=== PATIENT | female | born 1970 | race Caucasian/White ===

== ENCOUNTER 2016-07-10 09:31 | Emergency (ER) | payer OTHER ==
[~2016-07-10] VITALS: Ht 160 cm; Wt 81.6 kg
[~2016-07-10 09:31] MED LIST: AMOXICILLI250 MG/51 PO; AMOXICILLIN500 M3 PO; PERCOCET 5-3251 EACH PO
[2016-07-10 09:34] VITALS: BP 180/88
--- NOTE | 2016-07-10 09:41 | ED THROAT/DENTAL COMPLAINT ---
History of Present Illness General Chief Complaint: Sore Throat, Dental Pain Stated Complaint: FEVER,SORE THROAT Source: patient Exam Limitations: no limitations Vital Signs & Intake/Output Vital Signs & Intake/Output ED Intake and Output 07/11 0000 07/10 1200 Intake Total 0 Output Total Balance 0 Intake, Oral 0 Patient 180 lb Weight Allergies Coded Allergies: No Known Allergies (01/16/16) Reconcile Medications Amoxicillin 500 MG TABLET 1 TAB PO TID dental infection Amoxicillin 500 MG TABLET 2 TAB PO BID STREP Amoxicillin 250 MG/5 ML SUSP.RECON 10 ML PO TID TONSILITIS [MAGIC MOUTH WASH] 10 ML LIQUID 10 ML PO TID STREP VISCOUS LIDOCAINE, MALLOX, BENADRYL Oxycodone HCl/Acetaminophen (Percocet 5-325 MG Tablet) 1 EACH TABLET 1-2 TAB PO Q6P PRN pain Oxycodone HCl/Acetaminophen (Percocet 5-325 MG Tablet) 5 MG-325 MG TABLET 1-2 TAB PO Q6P PRN PAIN Triage Note: 45 YEAR OLD FEMALE COMPLAINS OF SORE THROAT X 3 DAYS. TEMP 101.1 AT TRIAGE, ABLE TO SWALLOW BUT WITH PAIN Triage Nurses Notes Reviewed? yes Onset: Abrupt Duration: day(s):, constant, continues in ED Timing: recent history Severity: moderate, severe No Modifying Factors: none : No Patient currently breastfeeds: No HPI: 45-year-old female who comes into emergency room with complaints of sore throat is been going on for the past. Severe pain to the neck. Swollen glands. Difficulty swallowing. Fever body aches and chills. Denies any other associated symptoms. (SANTIAGO MANZANO) Past History Travel History Traveled to [place] past 21 day No Medical History Any Pertinent Medical History? 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 No (SANTIAGO MANZANO) Review of Systems Review of Systems Constitutional: Reports: see HPI. EENTM: Reports: see HPI. Respiratory: Reports: see HPI. Cardiovascular: Reports: no symptoms. GI: Reports: no symptoms. Genitourinary: Reports: no symptoms. Musculoskeletal: Reports: no symptoms. Skin: Reports: no symptoms. Neurological/Psychological: Reports: no symptoms. Hematologic/Endocrine: Reports: no symptoms. Immunologic/Allergic: Reports: no symptoms. All Other Systems: Reviewed and Negative (SANTIAGO MANZANO) Physical Exam Physical Exam General Appearance: well developed/nourished, moderate distress Head: atraumatic, normal appearance Eyes: Bilateral: normal appearance, EOMI. Nose: normal inspection Mouth/Throat: PHARYNGEAL ERYTHEMA, TONSILLAR SWELLING, PHARYNGEAL EDEMA Neck: lymphadenopathy (R), lymphadenopathy (L) Cardiovascular/Respiratory: no respiratory distress Back: normal inspection Neurologic/Psych: awake, alert, oriented x 3, normal gait, normal mood/affect Skin: intact, normal color Core Measures ACS in differential dx? No Severe Sepsis Present: No Septic Shock Present: No (SANTIAGO MANZANO) Progress Differential Diagnosis: aspirated tooth, carious tooth, epiglottitis, Ludwigs angina, meningitis, odontogenic abscess, yessica-tonsillar abscess, pharyngeal for. body, stomatitis/gingivitis, strep pharyngitis, tooth fracture Plan of Care: Orders Procedure Date/time Status THROAT CULTURE W/QUICK STREP 07/10 931 Complete Departure Departure Disposition: HOME OR SELF CARE Condition: Stable Clinical Impression Primary Impression: Strep pharyngitis Referrals: PATIENT HAS NO PRIMARY CARE DR (PCP/Family) Additional Instructions: Taking amoxicillin and Magic mouthwash as prescribed. Drink plenty of fluids. Rest. Motrin at home. Take Percocet as needed for pain. Return if any concerns worsening symptoms. Please go over all results of today's visit with your primary care doctor. Contact your primary care doctor to let them know you were here in the emergency room. There may be nonspecific findings which may not be related to your visit today here in the emergency room but may require further evaluation and chronic monitoring by your primary care doctor. If you had a laceration today the chance of foreign body always remains. You should follow-up with your primary care doctor for recheck in 3-5 days for a wound check. If you had an x-ray done there is a chance that a fracture could have been missed on initial read and you should follow-up with your primary care doctor for repeat x-rays if symptoms persist. If your blood pressure was elevated here in the emergency room please have rechecked by her primary care doctor within the next 48 hours by your primary care doctor. If you were prescribed a narcotic here in the emergency room or any type of controlled substances you're not allowed to drive while taking this medication or operate any type of heavy machinery. Narcotics can make you feel lightheaded dizziness nausea and can cause constipation. 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 Thank you for choosing [facility] emergency room. Please return to the emergency room immediately if you have any other concerns worsening of symptoms. Departure Forms: Customer Survey General Discharge Information Prescriptions: Current Visit Scripts Amoxicillin 2 TAB PO BID #40 TAB Oxycodone HCl/Acetaminophen (Percocet 5-325 MG Tablet) 1-2 TAB PO Q6P PRN PAIN #20 TAB [MAGIC MOUTH WASH] 10 ML PO TID Comments 07/10/2016 10:15:37 AM Patient has no evidence of peritonsillar abscess. Patient has no trismus. Patient has significant lymphadenopathy but has a positive strep test. I feel that this is just a very bad case of strep pharyngitis at this point. I Do not have any suspicion for abscess or Brett angina at this moment. Patient will be started on oral medication. Follow-up with primary care doctor in 2-3 days for recheck or return to the emergency room if any worsening symptoms for further evaluation. (MONAE STAFFORD,SANTIAGO) PA/GAS METER READER Co-Sign Statement Statement: ED Attending supervision documentation- [] I saw and evaluated the patient. I have also reviewed all the pertinent lab results and diagnostic results. I agree with the findings and the plan of care as documented in the PA's/GAS METER READER's documentation. [X] I have reviewed the ED Record and agree with the PA's/GAS METER READER's documentation. [] Additions or exceptions (if any) to the PAs/GAS METER READER's note and plan are summarized below: [] (BEHZAD CALVO,ASTRID)
[2016-07-10] MEDS ORDERED: PERCOCET 5-3251 EACH PO (10:07)
[2016-07-10] MEDS ORDERED: AMOXICILLIN500 M3 PO (10:07)
[2016-07-10] MEDS ORDERED: MAGIC MOUTH WASH PO (10:07)
== END 2016-07-10 10:19 ==
LOC: ERH 09:31
DX: J02.0 Streptococcal pharyngitis (principal); Z72.0 Tobacco use
CPT/HCPCS: 96372; J1885

== ENCOUNTER 2016-09-19 15:50 | Emergency (ER) | payer OTHER ==
[~2016-09-19] VITALS: Ht 160 cm; Wt 81.6 kg
[~2016-09-19 15:50] MED LIST changes: +MAGIC MOUTH WASH PO
[2016-09-19] MEDS ORDERED: ZOLPIDEM TARTRA10 M1 PO (16:54)
[2016-09-19] MEDS ORDERED: ZESTRIL10 M1 PO (16:54)
[2016-09-19] MEDS ORDERED: LEXAPRO20 M1 PO (16:54)
--- NOTE | 2016-09-19 17:04 | ED THROAT/DENTAL COMPLAINT ---
History of Present Illness General Chief Complaint: Sore Throat, Dental Pain Stated Complaint: DENTAL PAIN,?INFECTION Source: patient, family, old records Exam Limitations: no limitations Vital Signs & Intake/Output Vital Signs & Intake/Output Vital Signs Date Time Temp Pulse Resp B/P Pulse O2 O2 Flow FiO2 Ox Delivery Rate 09/19 1553 96.9 76 19 168/93 97 Room Air Allergies Coded Allergies: No Known Allergies (01/16/16) Reconcile Medications Escitalopram Oxalate (Lexapro) 20 MG TABLET 1 TAB PO DAILY MENTAL HEALTH ( Reported) Lisinopril (Zestril) (Unknown Strength) TABLET (Unknown Dose) PO DAILY BP ( Reported) Zolpidem Tartrate 10 MG TABLET 1 TAB PO QPM SLEEP (Reported) Triage Note: PT TO ED FOR DENTAL PAIN X 2 DAYS. HAS NOT SEEN A DENTIST OR CALLED DENTIST YET. Triage Nurses Notes Reviewed? yes : No Patient currently breastfeeds: No HPI: Certainly last a patient again at experience left lower tooth pain which is throbbing in nature. Worsen with cold and cold liquids. No radiation. Pain is constant. This morning the pain increased to 1010 and she noticed that her lower jaw was swollen. Patient does not have a dentist. Similar symptoms in the past and she's had dental abscesses. No difficulty breathing or swallowing. No fevers or chills. Past History Travel History Traveled to [place] past 21 day No Medical History Any Pertinent Medical History? 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 No Review of Systems Review of Systems Constitutional: Reports: no symptoms. EENTM: Reports: see HPI, tooth pain. Respiratory: Reports: no symptoms. Cardiovascular: Reports: no symptoms. GI: Reports: no symptoms. Musculoskeletal: Reports: no symptoms. Neurological/Psychological: Reports: no symptoms. Physical Exam Physical Exam General Appearance: well developed/nourished, alert, awake, moderate distress Head: atraumatic Eyes: Bilateral: PERRL, EOMI. Ears: Bilateral: canal normal, Tympanic normal. Mouth/Throat: dental tenderness Neck: normal inspection, supple Cardiovascular/Respiratory: normal breath sounds, normal peripheral pulses, regular rate/rhythm Neurologic/Psych: no motor/sensory deficits, awake, alert, oriented x 3, normal mood/affect Core Measures ACS in differential dx? No Severe Sepsis Present: No Septic Shock Present: No Progress Differential Diagnosis: odontogenic abscess Plan of Care: Current Medications Sig/Reynaldo Start time Last Medication Dose Stop Time Status Admin Amoxicillin 500 MG ONCE ONE 09/195 AC (Amoxil) 09/20 1715 Oxycodone/ 1 TAB ONCE ONE 09/19 1714 AC Acetaminophen 09/20 1715 (Percocet) Departure Departure Disposition: HOME OR SELF CARE Condition: Stable Clinical Impression Primary Impression: Dental abscess Referrals: PATIENT HAS NO PRIMARY CARE DR (PCP/Family) Additional Instructions: FOLLOW UP WITH THE DENTAL LIST PROVIDED TAKE AMOXIL DIRECTED TAKE PERCOCET NEEDED FOR PAIN RETURN IF SYMPTOMS WORSEN OR FOR ANY CONCERNS Departure Forms: Customer Survey General Discharge Information Prescriptions: Current Visit Scripts Amoxicillin 1 TAB PO TID #30 TAB Oxycodone HCl/Acetaminophen (Percocet 5-325 MG Tablet) 1-2 TAB PO Q6P PRN PAIN #20 TAB
[2016-09-19] MEDS ORDERED: AMOXICILLIN500 M3 PO (17:16)
[2016-09-19] MEDS ORDERED: PERCOCET 5-3251 EACH PO (17:16)
[2016-09-19 18:46] VITALS: BP 164/94
== END 2016-09-19 18:47 ==
LOC: ERH 15:50
DX: K04.7 Periapical abscess without sinus (principal)

== ENCOUNTER 2016-09-26 15:44 | Emergency (ER) | payer OTHER ==
[~2016-09-26] VITALS: Ht 160 cm; Wt 81.6 kg
[~2016-09-26 15:44] MED LIST changes: +LEXAPRO20 M1 PO; +ZESTRIL10 M1 PO; +ZOLPIDEM TARTRA10 M1 PO
[2016-09-26 16:09] VITALS: BP 128/80
--- NOTE | 2016-09-26 16:36 | RADIOLOGY REPORT ---
EXAMINATION: CHEST 2 VIEWS CLINICAL INFORMATION: Chest pain. COMPARISON: None. TECHNIQUE: PA and lateral views of the chest were obtained. FINDINGS: The cardiac silhouette is not enlarged. The mediastinal and hilar contours are unremarkable. There are neither pleural effusions nor pneumothoraces. There are no consolidations. The osseous structures are unremarkable. IMPRESSION: No evidence for acute disease.
[2016-09-26] MEDS ORDERED: DICLOFENAC SODI75 M2 PO (17:25)
[2016-09-26] MEDS ORDERED: TYLENOL WITH C1 EACH PO (17:25)
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
== END 2016-09-26 17:54 ==
LOC: ERH 15:44
DX: S20.211A Contusion of right front wall of thorax, initial encounter (principal); R07.89 Other chest pain; Y04.8XXA Assault by other bodily force, initial encounter; Y92.9 Unspecified place or not applicable; Y93.9 Activity, unspecified
CPT/HCPCS: 93005; 93010

== ENCOUNTER 2016-12-27 11:40 | Emergency (ER) | payer OTHER ==
[~2016-12-27] VITALS: Ht 160 cm; Wt 104.3 kg
[~2016-12-27 11:40] MED LIST changes: +DICLOFENAC SODI75 M2 PO; +TYLENOL WITH C1 EACH PO
[2016-12-27 11:44] VITALS: BP 150/84
[2016-12-27] MEDS ORDERED: BACTRIM DS TAB1 EACH PO (13:10)
[2016-12-27] MEDS ORDERED: AMOXICILLIN875 M1 PO (13:10)
--- NOTE | 2016-12-27 13:11 | ED HAND/WRIST INJURY COMPLAINT ---
History of Present Illness General Chief Complaint: Hand or Wrist Injury Stated Complaint: ?FINGER INFECTION Source: patient Exam Limitations: no limitations Vital Signs & Intake/Output Vital Signs & Intake/Output Vital Signs Date Time Temp Pulse Resp B/P B/P Pulse O2 O2 Flow FiO2 Mean Ox Delivery Rate 12/27 1144 98.5 85 20 150/84 97 Room Air Allergies Coded Allergies: No Known Allergies (01/16/16) Reconcile Medications Amoxicillin 875 MG TABLET 1 TAB PO BID paronychia Amoxicillin 500 MG TABLET 1 TAB PO TID DENTAL ABSCESS Diclofenac Sodium 75 MG TABLET.DR 1 TAB PO BID PRN pain/inflammation Escitalopram Oxalate (Lexapro) 20 MG TABLET 1 TAB PO DAILY MENTAL HEALTH ( Reported) Lisinopril (Zestril) (Unknown Strength) TABLET (Unknown Dose) PO DAILY BP ( Reported) Oxycodone HCl/Acetaminophen (Percocet 5-325 MG Tablet) 5 MG-325 MG TABLET 1-2 TAB PO Q6P PRN PAIN Sulfamethoxazole/Trimethoprim (Bactrim Ds Tablet) 800 MG-160 MG TABLET 1 TAB PO BID paronychia Tylenol With Codeine (Tylenol With Codeine #3 Tablet) 300 MG-30 MG TABLET 1-2 TAB PO Q6 PRN pain may cause drowsiness Zolpidem Tartrate 10 MG TABLET 1 TAB PO QPM SLEEP (Reported) Triage Note: C/O RIGHT THUMB PAIN. STATES SHE MAY HAVE SLICED THE TOP OF HER NAIL BUT SHE WAS IN [place] WHEN THE PAIN STARTED AND NOW IT APPEARS INFECTED. PT STATES [place] WAS [place]IM[place] WHEN IT BECAME PAINFUL Triage Nurses Notes Reviewed? yes Occurred: just prior to arrival Duration: day(s):, constant, getting worse Timing: recent history Injury Environment: home No Modifying Factors: none : No Patient currently breastfeeds: No HPI: 46-year-old female comes into emergency room with right thumb swelling and pain. Symptoms going on for a few days. Getting gradually worse. Denies any fever chills vomiting. Denies any assisted symptoms. (SANTIAGO MANZANO) Past History Travel History Traveled to [place] past 21 day No Medical History Any Pertinent Medical History? 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 No (SANTIAGO MANZANO) Review of Systems Review of Systems Constitutional: Reports: no symptoms. EENTM: Reports: no symptoms. Respiratory: Reports: no symptoms. Cardiovascular: Reports: no symptoms. GI: Reports: no symptoms. Genitourinary: Reports: no symptoms. Musculoskeletal: Reports: no symptoms. Skin: Reports: see HPI. Neurological/Psychological: Reports: no symptoms. Hematologic/Endocrine: Reports: no symptoms. Immunologic/Allergic: Reports: no symptoms. All Other Systems: Reviewed and Negative (SANTIAGO MANZANO) Physical Exam Physical Exam General Appearance: well developed/nourished, mild distress Head: atraumatic Eyes: Bilateral: normal appearance. Ears, Nose, Throat: normal ENT inspection, hearing grossly normal Neck: normal inspection Cardiovascular/Respiratory: no respiratory distress Back: normal inspection Hand Left: normal range of motion Hand Right: swelling, tender, 1st finger, distal phalanx, pus appreciated on her skin, Neurologic/Tendon: normal sensation, normal motor functions, responds to pain, no evidence tendon injury, no pulse deficit Skin: intact, normal color, warm/dry Lymphatic: no anterior cervical rolando (SANTIAGO MANZANO) Progress Differential Diagnosis: abscess, cellulitis, felon, fracture, paronychia, septic arthritis, sprain Plan of Care: Orders Procedure Date/time Status EXTREMETIES CULTURE 12/27 1328 Active Microbiology 12/27 1329 EXTREMITIE: Culture & Sensitivity - RECD 12/27 1329 EXTREMITIE: Gram Stain - RECD Departure Departure Disposition: HOME OR SELF CARE Condition: Stable Clinical Impression Primary Impression: Paronychia of right thumb Referrals: PATIENT HAS NO PRIMARY CARE DR (PCP/Family) Additional Instructions: Take amoxicillin and Bactrim as prescribed. Warm soaks. Return if any concerns worsening symptoms. Follow-up for wound check in 3 days. Please go over all results of today's visit with your primary care doctor. Contact your primary care doctor to let them know you were here in the emergency room. There may be nonspecific findings which may not be related to your visit today here in the emergency room but may require further evaluation and chronic monitoring by your primary care doctor. If you had a laceration today the chance of foreign body always remains. You should follow-up with your primary care doctor for recheck in 3-5 days for a wound check. If you had an x-ray done there is a chance that a fracture could have been missed on initial read and you should follow-up with your primary care doctor for repeat x-rays if symptoms persist. If your blood pressure was elevated here in the emergency room please have rechecked by her primary care doctor within the next 48 hours by your primary care doctor. If you were prescribed a narcotic here in the emergency room or any type of controlled substances you're not allowed to drive while taking this medication or operate any type of heavy machinery. Narcotics can make you feel lightheaded dizziness nausea and can cause constipation. You may need to grape picker a stool softener. Thank you for choosing [facility] emergency room. Please return to the emergency room immediately if you have any other concerns worsening of symptoms. Departure Forms: Customer Survey General Discharge Information Prescriptions: Current Visit Scripts Amoxicillin 1 TAB PO BID #20 TAB Sulfamethoxazole/Trimethoprim (Bactrim Ds Tablet) 1 TAB PO BID #20 TAB (SANTIAGO MANZANO) PA/[employer] SALES REPRESENTATIVE Co-Sign Statement Statement: ED Attending supervision documentation- I saw and evaluated the patient. I have also reviewed all the pertinent lab results and diagnostic results. I agree with the findings and the plan of care as documented in the PA's/[employer] SALES REPRESENTATIVE's documentation. x I have reviewed the ED Record and agree with the PA's/[employer] SALES REPRESENTATIVE's documentation. [] Additions or exceptions (if any) to the PAs/[employer] SALES REPRESENTATIVE's note and plan are summarized below: [] (HUMBERTO MONTIEL MD) Procedures Incision and Drainage Site: right thumb Blade Size: 11 I & D Procedure: Yes: betadine prep, sterile drapes applied, sterile dressing applied. Progress: 2% lidocaine, digital block performed, 6 mL of lidocaine injected, 11 blade scalpel, pus expelled from the wound (SANTIAGO MANZANO)
== END 2016-12-27 13:39 ==
LOC: ERH 11:40
DX: L03.011 Cellulitis of right finger (principal)
CPT/HCPCS: 87070; 87147; J2001